=== PATIENT | male | born 1925 | race Caucasian/White ===

== ENCOUNTER 2017-04-01 16:50 | Emergency (ER) | payer MEDICARE ==
[2017-04-01] MEDS ORDERED: Oxymetazoline 0.05% NASAL SPR* 15 ML BTL BOTH NARES ONE (18:27)
--- NOTE | 2017-04-01 20:11 | ED ---
Throat Pain/Nasal Congestion - HPI Summary HPI Summary: Pt here w/ epistaxis since . Admits to URI prior to - was blowing his nose quite a bit during this "cold". Epistaxis happens a couple of times a day most days. Controlled w/ pressure or tamponade with tissue paper. He is on coumadin, lasix and keeps the heat at 72 or higher w/o humidification or nasal spray. Just started trying vasoline in his nasal passage - non- painful. Otherwise, no trauma to nose. Denies fatigue, headache, change in vision, dizziness, lightheadedness, syncope, ST, nausea, vomiting or difficulty eating or breathing. He reports he just had his INR drawn today and it was 2.8 - History of Current Complaint Chief Complaint: EDEpistaxis Time Seen by Provider: 04/01/17 17:47 Hx Obtained From: Patient, Family/Care Management Specialist - , son - Allergies/Home Medications Allergies/Adverse Reactions: Allergies Allergy/AdvReac Type Severity Reaction Status Date / Time Aspirin AdvReac Mild See Comment Verified 04/01/17 17:13 PMH/Surg Hx/FS Hx/Imm Hx Previously Healthy: Yes Endocrine/Hematology History: Reports: Hx Anticoagulant Therapy - coumadin for a. 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 arm - Surgical History Surgery Procedure, Year, and Place: GALL BLADDER, HERNIA, cataract, right knee replacement, - Immunization History Immunizations Up to Date: Yes Infectious Disease History: No Infectious Disease History: Denies: Traveled Outside the [place] in Last 30 Days - Family History Known Family History: Positive: None - Social History Occupation: Retired Lives: With Family Alcohol Use: Rare Hx Substance Use: No Substance Use Type: Reports: None Hx Tobacco Use: No Smoking Status (MU): Never Smoked Tobacco Review of Systems Constitutional: Negative Negative: Fever, Chills, Fatigue Eyes: Negative Positive: Epistaxis Cardiovascular: Negative Respiratory: Negative Gastrointestinal: Negative Positive: no symptoms reported Skin: Negative Neurological: Negative Psychological: Normal All Other Systems Reviewed And Are Negative: Yes Physical Exam Triage Information Reviewed: Yes Vital Signs On Initial Exam: Initial Vitals Temp Pulse Resp BP Pulse Ox 98.2 F 69 18 121/75 99 04/01/17 16:51 04/01/17 16:51 04/01/17 16:51 04/01/17 16:51 04/01/17 16:51 Vital Signs Reviewed: Yes Appearance: Positive: Well-Appearing, No Pain Distress, Well-Nourished Skin: Positive: Warm, Dry - no signs of bruising/bleeding about skin in general Head/Face: Positive: Normal Head/Face Inspection - NTTP Eyes: Positive: Normal, EOMI, ANGIE, Conjunctiva Clear. Negative: Conjunctiva Inflammed, Discharge ENT: Positive: Normal ENT inspection, Hearing grossly normal, Pharynx normal, TMs normal - no hemotympanum. Negative: Nasal congestion, Nasal drainage - dried blood in mucosal passages; healed white 2mm ulcer along Lt septal wall - no vessels nor bleeding nor scabbing identified. Neck: Positive: Supple, Nontender Respiratory/Lung Sounds: Positive: Breath Sounds Present Abdomen Description: Positive: Nontender, Soft Musculoskeletal: Positive: Normal, Strength/ROM Intact Neurological: Positive: Normal, Sensory/Motor Intact, Alert, Oriented to Person Place, Time, CN Intact II-III Psychiatric: Positive: Normal - Clarence Coma Scale Coma Scale Total: 15 Procedures - Procedure Summary Procedure Summary: Nasal passages cleaned of dried blood - no areas identified of bleeding - only suspicious location is along Lt septal wall but appear to have healed (white healed ulceration w/o moisture or d/c). Pt tolerated exam well. No afrin was required. Diagnostics - Vital Signs Vital Signs Temp Pulse Resp BP Pulse Ox 04/01/17 16:51 98.2 F 69 18 121/75 99 - Laboratory Lab Statement: Any lab studies that have been ordered have been reviewed, and results considered in the medical decision making process. EENT Course/Dx - Course Course Of Treatment: No bleeding or suspicious areas appropriate for silver nitrate. Discussed lifestyle changes to address nasal mucosal dryness increasing risk for epistaxis as well as how to stop a nose bleed if one returns. Danger s/sx of when to retunr to ED addressed w/ pt, son and . He will f/u w/ ENT if no success w/ methods recommended. - Diagnoses Provider Diagnoses: Epistaxis Discharge - Discharge Plan Condition: Stable Disposition: HOME Patient Education Materials: Nosebleed (ED) Referrals: Ruparelia,Mino, MD [Medical Doctor] - Stan Brito MD [Primary Care Provider] - Additional Instructions: You appear to have irritation of the Lt septal wall within your nose. In an effort to keep this from bleeding, you may improve your hydration status. This may be done by turning the heat in your home to 68F or less, run a humidifier/ place bowls of water around the house, use saline nasal spray along with vasoline intranasally before bed and drink plenty of water. Avoid rubbing/ wiping your nose to reduce risk of further irritation - you may gently wipe if you have congestion or drainage. If your nose bleed returns, pinch the soft part of your nose and lean forward for 20 minutes straight. Upon completining compression you may also spray Afrin 2 into each nostril that is bleeding - this may be sprayed only 2 x day as it can cause drying of mucous membranes, increased blood pressure and rebound congestion. If you cannot get your bloody nose to stop with these techniques, or you develop headache, weakness, dry mouth , chest pain, shortness of breath, dizziness, weakness, return to ED. You may also call ENT to better assess nasal structures/vessels higher up in the nose. Call tomorrow to schedule an appointment. If nose bleeds improve with tactics reviewed, no follow-up here is necessary.
[2017-04-01 21:07] VITALS: BP 121/65
== END 2017-04-01 21:05 | disposition home or self-care (01) ==
LOC: ED 16:50
DX: R04.0 Epistaxis (principal); Z79.01 Long term (current) use of anticoagulants; Z86.79 Personal history of other diseases of the circulatory system
CPT/HCPCS: 99282; A9270-GY